=== PATIENT | female | born 1975 | race American Indian/Alaskan Native ===

== ENCOUNTER 2019-06-12 18:42 | Emergency (ER) | payer OTHER ==
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
[2019-06-12] MEDS ORDERED: HYDROcodone/ACETAMINOPHEN 7.5-325MG TAB PO ONE (22:07)
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
--- NOTE | 2019-06-12 23:03 | XRay Report ---
THORACIC SPINE 2 VIEWS LUMBAR SPINE 3 VIEWS INDICATION: Back pain. COMPARISON: No relevant prior imaging study available. FINDINGS: VERTEBRAE: No acute fracture. There is mild thoracolumbar levoscoliosis. DISC SPACES: Generalized mild discogenic degenerative changes are present along the thoracic spine. N o significant abnormality of the lumbar spine. FACET JOINTS: No significant abnormality. SOFT TISSUES: No significant abnormality. ADDITIONAL FINDINGS: No additional significant findings. IMPRESSION: 1. No acute findings. 2. Mild thoracic spondylosis with thoracolumbar levoscoliosis. Signer Name: Shankar Rondon MD Signed: 06/12/2019 10:59 PM Workstation Name: [id number]
[2019-06-12] MEDS ORDERED: IBUPROFEN 600 MG TAB PO ONE (23:49)
[2019-06-12] MEDS ORDERED: CYCLOBENZAPRINE 10 MG TAB PO ONE (23:49)
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
[2019-06-13 01:13] VITALS: BP 140/84
== END 2019-06-13 01:14 | disposition home or self-care (01) ==
LOC: ED 18:42
DX: S13.4XXA Sprain of ligaments of cervical spine, initial encounter (principal); S83.92XA Sprain of unspecified site of left knee, initial encounter; S39.92XA Unspecified injury of lower back, initial encounter; M62.830 Muscle spasm of back; Z79.899 Other long term (current) drug therapy; V49.49XA Driver injured in collision with other motor vehicles in traffic accident, initial encounter; Y93.89 Activity, other specified; Y92.410 Unspecified street and highway as the place of occurrence of the external cause; Y99.8 Other external cause status
CPT/HCPCS: 72070; 72100; 72125